=== PATIENT | female | born 1995 | race African-American/Black ===

== ENCOUNTER 2025-04-04 21:30 | Emergency (ER) | payer SELFPAY ==
--- NOTE | 2025-04-04 21:45 | PC.NURSE ---
As this RN attempted to place pt in gown and supervisor grower to vitals. Pt reports she is feeling much better. Pt states she can breath easier and feels like she is okay to leave at this time. Pt respirations equal and unlabored.
--- NOTE | 2025-04-04 21:48 | PC.NURSE ---
Patient stopped by front desk specialist after being roomed --reports that she feels like her anxiety was causing issues -and now she feels like she has it more under control and that she can manage it at home. Patient respirations now even and unlabored
== END 2025-04-04 21:45 | disposition left against medical advice (07) ==
DX: Z53.21 Procedure and treatment not carried out due to patient leaving prior to being seen by health care provider (principal)
CPT/HCPCS: 99199

== ENCOUNTER 2025-07-27 08:39 | Emergency (ER) | payer MEDICAID, SELFPAY ==
[2025-07-27 08:59] VITALS: BP 130/65; PULSE 79; RESP 20; TEMP 36.8; O2SAT 100
--- NOTE | 2025-07-27 09:31 | ED.LOWEXIN ---
HPI - Extremity Injury (Lower) General Chief Complaint: Extremity Injury, Lower Stated Complaint: left ankle injury Time Seen by Provider: 07/27/25 09:31 Source: patient Mode of arrival: ambulatory Limitations: no limitations History of Present Illness HPI Narrative: 30-year-old female presents stating she needs more clarity on left ankle injury . Patient states she did a cartwheel in the [facility] about 1 week ago. Was seen [facility] and had negative left ankle and left foot x-rays. States they did not tell me what was wrong with my ankle . Has aching and swelling in the evening. At this time no pain or swelling. Ambulatory with steady gait. All systems reviewed and negative except as noted above. Related Data Allergies Allergy/AdvReac Type Severity Reaction Status Date / Time cat dander Allergy Intermediate Shortness Verified 07/27/25 09:26 of breath PMFSH Comments At time of signature, agree with nursing past medical, surgical, social and family history. There is no relevant family history pertinent to the presenting complaint. Exam Narrative: GENERAL: This is a well-nourished, well-developed patient, in no apparent distress. HEAD: normocephalic, atraumatic. EYES: PERRL. Sclera clear/white. Vision is grossly intact. EARS: External ears normal NOSE: External nose normal NECK: Neck supple, non-tender without lymphadenopathy, masses or thyromegaly. CARDIOVASCULAR: Regular rate and rhythm without murmurs, gallops, or rubs. RESPIRATORY: Clear to auscultation. Breath sounds equal bilaterally. No wheezes, rales, or rhonchi. GASTROINTESTINAL: Abdomen soft, non-tender, nondistended. Bowel sounds are active. No hepato-splenomegaly, or palpable masses. No guarding. SKIN: warm, Dry, intact with no suspicious lesions or rash, good texture and turgor. NEURO: awake, alert, and oriented to person, place and time. There were no obvious focal neurologic abnormalities. EXTREMITIES: No joint tenderness, effusion, or edema noted. Normal range of motion to left ankle, distal neurovascularly intact. Course Course Level of Care: Express Care Visit Vital Signs Vital signs: Vital Signs Temperature 36.8 C 07/27/25 08:59 Pulse Rate 79 07/27/25 08:59 Respiratory Rate 20 07/27/25 08:59 Blood Pressure 130/65 07/27/25 08:59 Pulse Oximetry 100 07/27/25 08:59 Oxygen Delivery Room Air 07/27/25 08:59 Temperature 36.8 C 07/27/25 08:59 Pulse Rate 79 07/27/25 08:59 Respiratory Rate 20 07/27/25 08:59 Blood Pressure 130/65 07/27/25 08:59 Pulse Oximetry 100 07/27/25 08:59 Oxygen Delivery Room Air 07/27/25 08:59 Reviewed MDM - Extremity Injury (Lower) MDM Narrative Medical decision making narrative: patient has no swelling or tenderness to left ankle. Range of motion is normal. X-rays at another ER 1 week ago were negative for fracture. Differential Diagnosis Differential diagnosis: Likely ankle sprain and strain Discharge Plan Discharge Clinical Impression: Mild sprain of left ankle Patient Disposition: Home Condition: Stable Instructions: Ankle Sprain (ED) Additional Instructions: Wear provided Demarcus wrap to compress swelling and provide support when ambulatory. Apply ice as needed for pain. Elevate when at rest. Follow-up with primary care physician to establish care. Patient Language: Polish Follow-up/Referrals: Carole Yates DO [Physician, Family Practice] Referral Note: Establish care with a primary care physician Time of Disposition: 09:42
== END 2025-07-27 09:48 | disposition home or self-care (01) ==
PROVIDERS: Emergency Provider Nurse Practitioner Family
DX: S93.402A Sprain of unspecified ligament of left ankle, initial encounter (principal); X58.XXXA Exposure to other specified factors, initial encounter
CPT/HCPCS: 99202; G0463